=== PATIENT | male | born 1990 | race Caucasian/White ===

== ENCOUNTER 2025-08-03 17:59 | Emergency (ER) | payer BC ==
[2025-08-03 19:10] LABS: Actual Bicarbonate (HCO3a) 19.8 mEq/L (22-28); Analyzer IN Cardio CS ER; Base Excess (BEa) 0.2 mEq/L (-2.0 to +3.0); CO2 Tension 22.3 mmHg (35.0-45.0); Calcium, Ionized (arterial) 1.15 mmol/L (1.12-1.30); Hematocrit-ABG 49 % (42.0-52.0); Hemoglobin (Hb) 16.7 g/dL (14.0-18.0); O2 Tension (PaO2), arterial 109.4 mmHg (80.0-100.0); Potassium - ABG Lab 3.79 mmol/L (3.70-5.30); Puncture Site Right Radial artery; pH, Arterial 7.566 (7.35-7.45)
== END 2025-08-03 19:49 ==
LOC: CSHERS 17:59
DX: Z00.00 Encounter for general adult medical examination without abnormal findings (principal)
CPT/HCPCS: 36600; 82805; 93005; 99283